=== PATIENT | male | born 1960 | race Caucasian/White ===

== ENCOUNTER → 2016-12-10 | Day surgery (SDC) | payer OTHER ==
--- NOTE | 2016-12-09 11:46 | MH ---
cc: Magdalena HILTON M.D. DATE OF ADMISSION: 12/10/2016 ADMISSION DIAGNOSIS Colles fracture left distal radius. ADMISSION HISTORY AND PHYSICAL This pleasant 56-year-old male is being admitted today for closed reduction and pinning of his left distal radius fracture which he sustained when he fell a house in [place], [place] two weeks ago. PAST MEDICAL HISTORY Other past history, the patient has a history of anxiety, depression, sciatica and thyroid issues. MEDICATIONS Current medications include: 1. Lexapro. 2. Klonopin. PAST SURGERIES None. REVIEW OF SYSTEMS Noncontributory. FAMILY HISTORY Noncontributory. SOCIAL HISTORY Does not smoke. Drinks occasionally. ALLERGIES He has no known allergies. PHYSICAL EXAMINATION GENERAL: We find a 56-year male well-developed, well-nourished, oriented times three, complaining of pain in his left wrist. VITAL SIGNS: Blood pressure 132/78, pulse 64 and regular, respirations 18, temperature 97.9, pulse oximetry 98% on room air. HEENT: Eyes PERRL, EOMI. Ears, nose, mouth clear. NECK: Supple. LUNGS: Clear. HEART: Regular rate. ABDOMEN: Soft. Positive bowel sounds, nontender. EXTREMITIES: Reveal his left wrist to be tender with deformity noted. Neurovascularly intact to his fingers. IMPRESSION AT THIS TIME Angulated fracture, left distal radius. PLAN Admission for closed reduction and pinning left distal radius fracture. The patient given prescription for postoperative pain control in the office. MD MARLINE Sims/JOSEPHINE /5:13 PM /11:48 AM
[~2016-12-10] VITALS: Ht 182.9 cm; Wt 90.1 kg
[~2016-12-10] MED LIST: ASPI81CH PO; BEE1CAP PO; CHLORHEXIDINE GLUCONATE 2 % 1 PACK (2 CLOTHS) TOPICAL PRN; CHLORHEXIDINE GLUCONATE 4% SOLN 120 ML BTL TOPICAL SCH; CLON.5 PO; COLA100C PO; DEXAMETHASONE SOD PHOS 4 MG/ML VIAL ONE; DO NOT ADM ANY ANTICOAGULANT DRUGS PRN; EXPAREL PERI-ARTICULAR INJECTION (TOTAL VOL. 60 ML) P-ARTICULR SCH; FAMOTIDINE 20 MG/2 ML VIAL ONE; INSULIN HUMAN REGULAR 1,000 UNITS/10 ML VIAL SQ PRN; KETOROLAC TROMETHAMINE 60 MG/2 ML (IM) VIAL IM ONE; LACTATED RINGER'S 1000 ML IV PRN; LEXA10TA PO; MEPERIDINE HCL 25 MG/ML VIAL IM PRN; METOPROLOL TARTRATE 25 MG TAB PO PRN; MIDAZOLAM HCL 2 MG/2 ML VIAL ONE; MULTTAB67 PO; OMEGCAP PO; ONDANSETRON HCL 4 MG/2 ML VIAL IV PUSH ONE; ONDANSETRON HCL 4 MG/2 ML VIAL IV PUSH PRN; ONDANSETRON HCL 4 MG/2 ML VIAL IV PUSH SCH; OXYC-432 PO; POVIDONE IODINE 5% (ANTISEPSIS KIT) 4 APPLICATIONS EACH NARE PRN; PROPOFOL 200 MG/20 ML AMP IV ONE; SODIUM CHLORID 0.9% 500 ML IV PRN; ceFAZolin 2 GM PREMIX 50 ML IV SCH; ceFAZolin 2 GM PREMIX 50 ML ONE; fentaNYL CITRATE 250 MCG/5 ML AMP ONE; oxyCODONE/ACETAMINOPHEN 5 MG/325 MG TAB PO PRN
[2016-12-10 12:41] VITALS: BP 156/82; PULSE 58; RESP 16; TEMP 97.9; O2SAT 100
[2016-12-10 12:55] LABS: AUTOMATED NEUTROPHIL # 3.9 TH/MM3 (1.8-7.7); BASOPHIL % 0.6 % (0.0-2.0); EOSINOPHIL # 0.1 TH/MM3 (0-0.4); EOSINOPHIL % 1.4 % (0.0-4.0); HEMATOCRIT 42.5 % (39.0-51.0); HEMO FLAGS DIFF FINAL; LYMPH % 19.5 % (9.0-44.0); LYMPHOCYTE # 1.1 TH/MM3 (1.0-4.8); MEAN CELL VOLUME 85.9 FL (80.0-100.0); MEAN CORPUSCULAR HEMOGLOBIN 28.4 PG (27.0-34.0); MEAN CORPUSCULAR HGB CONC 33.1 % (32.0-36.0); MONO % 6.4 % (0.0-8.0); NEUT % 72.1 % (16.0-70.0); PLATELET COUNT 256 TH/MM3 (150-450); RED BLOOD COUNT 4.94 MIL/MM3 (4.50-5.90); RED CELL DISTRIBUTION WIDTH 13.9 % (11.6-17.2); WHITE BLOOD COUNT 5.4 TH/MM3 (4.0-11.0)
[2016-12-10 13:04] LABS: APTT (PATIENT) 25.4 SEC (24.3-30.1); INTERNATIONAL NORMALIZED RATIO 0.9 RATIO; PROTHROMBIN TIME - PATIENT 10.4 SEC (9.8-11.6)
[2016-12-10 13:18] LABS: ALT (GPT) 25 U/L (12-78); ANION GAP 6 MEQ/L (5-15); AST (GOT) 17 U/L (15-37); BICARBONATE 30.3 MEQ/L (21.0-32.0); BLOOD UREA NITROGEN 19 MG/DL (7-18); CHLORIDE 105 MEQ/L (98-107); GLOMERULAR FILTRATION RATE 91 ML/MIN (>89); POTASSIUM 4.3 MEQ/L (3.5-5.1); SODIUM (NA) 141 MEQ/L (136-145)
[2016-12-10 13:20] LABS: ALKALINE PHOSPHATASE 60 U/L (45-117); TOTAL BILIRUBIN ADULT 0.5 MG/DL (0.2-1.0)
--- NOTE | 2016-12-10 14:46 | HHI.PR ---
Immediate Post Op Note Procedure Date: Dec 10, 2016 Pre Op Diagnosis: Left distal radius fracture, angulated Post Op Diagnosis: Left distal radius Colles fracture, angulated Surgeon: Magdalena Schulte MD Manager Finance(s): Beatriz PANDYA Procedure: Left closed reduction internal fixation with pinning Left short arm cast Complications: none Specimen(s) removed: none Estimated blood loss: none Anesthesia: General Drains: None IVF Tourniquet time (min at mmHg) none Patient to: PACU Patient Condition: Good Implant/Devices: SEE IMPLANT LOG (if applicable) Date/Time of Procedure: SEE SURGICAL CARE RECORD Beatriz Taylor Dec 10, 2016 14:46
--- NOTE | 2016-12-10 15:53 | RADRPT ---
EXAM DATE/TIME: 12/10/2016 14:03 [facility] COMPARISON: No previous studies available for comparison. INDICATIONS : Closed reduction internal fixation left wrist MEDICAL HISTORY : None. SURGICAL HISTORY : None. ENCOUNTER: Initial ACUITY: 1 day PAIN SCORE: Non-responsive. LOCATION: Left wrist CONCLUSION: Fluoroscopic image during placement of a pin through the distal radius fracture. Ulnar styloid fractu re seen. Timothy Burns MD on December 10, 2016 at 15:50 Board Certified Radiologist. This report was verified electronically.
[2016-12-10 16:08] VITALS: BP 137/77; PULSE 55; RESP 16; TEMP 98.6; O2SAT 97
--- NOTE | 2016-12-11 12:17 | EKG ---
Date Performed: 12/10/2016 Time Performed: 12:29:21 PTAGE: 56 years EKG: SINUS BRADYCARDIA Since previous tracing, no significant change noted BORDERLINE ECG PREVIOUS TRACING : 05/11/2005 00.27 DOCTOR: Jordan Roberto Interpretating Date/Time 12/11/2016 12:15:59
--- NOTE | 2016-12-12 20:28 | MP ---
cc: Magdalena SCHULTE M.D. DATE OF SURGERY: 12/10/2016 PREOPERATIVE DIAGNOSIS: Displaced angulated fracture of left distal radius. POSTOPERATIVE DIAGNOSIS: Displaced angulated fracture of left distal radius. OPERATIVE PROCEDURE PERFORMED: Closed reduction and percutaneous pinning, left distal radial fracture. SURGEON: Magdalena Schulte MD. SUPERVISOR JOINERS: MUMTAZ Parker. ANESTHESIA: General intubation. DESCRIPTION OF THE PROCEDURE IN DETAIL: The patient was brought to the operating room and placed on the operating table in the supine position. After successful induction of general anesthesia, the patient's left wrist was first manipulated under fluoroscopy to reduce the volarly angulated displaced fracture of the distal radius. After good reduction, the left wrist was prepped and draped in the usual manner and a small stab wound was then made at the tip of the radial styloid for insertion of a 0.25 Steinmann pin, which was inserted in the tip of the radial styloid across the fracture and fixated through the opposite cortex under fluoroscopy. The end of the clip was then bent back and Robe ball applied over it. AP and lateral views at this point revealed excellent reduction of the fracture with the pin in excellent position. A sterile dressing was then applied followed by a short-arm cast held in neutral position. AP and lateral views after the cast was hardened revealed the fracture be unchanged in alignment. The estimated blood loss was zero. Sponge and suture counts were correct. The patient tolerated the procedure well and left the operating room in satisfactory condition. MUMTAZ Parker was present during the entire procedure to include patient positioning and the procedure. The medical necessity of a nurse practitioner and assistant men's soccer coach was indicated in this case due to the surgical complexity of the case itself. During the surgical case, the surgical scheduler was working at the back table while my surgical corsetier / DNA ANALYST was directly assisting me. The patient went to the recovery room in stable condition. MD MARLINE Sims/JCBob /2:47 PM /8:25 PM
== END | disposition home or self-care (01) ==
LOC: HSDC 11:41
PROVIDERS: ATTEND Surgery
DX: S52.502A Unspecified fracture of the lower end of left radius, initial encounter for closed fracture (principal); R00.1 Bradycardia, unspecified; E07.9 Disorder of thyroid, unspecified; F41.9 Anxiety disorder, unspecified; F32.9 Major depressive disorder, single episode, unspecified; M54.30 Sciatica, unspecified side; Z79.899 Other long term (current) drug therapy; W19.XXXA Unspecified fall, initial encounter
CPT/HCPCS: 01820; 25606; 73110; 76000; 80053; 85025; 85610; 85730; 93005; J0690; J1100; J1885; J2250; J2405; J3010; J7120